=== PATIENT | male | born 1975 | race Two or more races ===

== ENCOUNTER 2017-08-01 05:01 | Emergency (ER) | payer MEDICAID ==
[~2017-08-01] VITALS: Ht 175.3 cm; Wt 86.2 kg
[2017-08-01 05:36] LABS: Urine RBC None Seen /hpf (0 - 3)
[2017-08-01 05:46] LABS: Urine Bilirubin Negative (Negative); Urine Blood Negative /uL (Negative); Urine Color Yellow (Yellow); Urine Glucose Normal (Normal); Urine Ketone Negative (Negative); Urine Mucus FEW (None Seen); Urine Nitrite Negative (Negative); Urine Urobilinogen Normal (Negative); Urine pH 5.5 (5.0-8.0)
[2017-08-01 05:47] LABS: Basophils # (auto) 0 uL; Basophils % (auto) 0.2 % (0.0-2.0); CONDITION Y; Eosinophils # (auto) 0.1 uL; Eosinophils % (auto) 1.5 % (0.0-7.0); Hematocrit 42.7 % (41.0-53.0); Hemoglobin 14.5 g/dL (13.5-17.5); Lymphocytes # (auto) 1.5 uL; Lymphocytes % (auto) 27.4 % (10.0-50.0); Mean Corpuscular Hemoglobin 31.1 pg (28.0-32.0); Mean Corpuscular Volume 91.7 fL (80.0-100.0); Mean Platelet Volume 9.1 fL (7.4-10.4); Monocytes # (auto) 0.4 uL; Monocytes % (auto) 6.7 % (0.0-12.0); Neutrophils # (auto) 3.6 uL; Neutrophils % (auto) 64.2 % (37.0-80.0); Platelet Count (auto) 162 10^3/uL (140-450); White Blood Cell 5.6 10^3/uL (4.4-10.8)
[2017-08-01 05:57] LABS: INR 0.96 (0.9-1.15); Partial Thromboplastin Time 28.1 sec (22.64-33.71); Prothrombin Time 10.5 sec (9.37-12.3)
[2017-08-01 06:19] LABS: B-Type Natriuretic Peptide 4.91 pg/mL (0-100); Temperature: 23.7 C (20.0-25.0)
[2017-08-01 06:20] LABS: Chloride 108 mmol/L (98-107); Potassium 4.1 mmol/L (3.5-5.1); Sodium 144 mmol/L (136-145)
[2017-08-01 06:24] LABS: Albumin 3.7 g/dL (3.4-5.0); Anion Gap 9 (5-15); Aspartate Aminotransferase 7 U/L (15-37); BUN/Creatinine Ratio 17.8; Blood Urea Nitrogen 21 mg/dL (7-18); Calcium 8.5 mg/dL (8.5-10.1); Carbon Dioxide 27 mmol/L (21-32); GFR African American 88 mL/min; GFR Non-African American 73 mL/min; Glucose 101 mg/dL (74-106); Magnesium 2.2 mg/dL (1.6-2.6)
[2017-08-01 06:29] LABS: Alkaline Phosphatase 65 U/L (45-117); Bilirubin, Total 0.3 mg/dL (0.2-1.0)
[2017-08-01] MEDS ORDERED: PANTOPRAZOLE 40 MG/10 ML VIAL IV ONE (06:45)
[2017-08-01 06:51] VITALS: BP 115/70
== END 2017-08-01 11:25 | disposition home or self-care (01) ==
LOC: ER 05:01
DX: K29.70 Gastritis, unspecified, without bleeding (principal); I10 Essential (primary) hypertension
CPT/HCPCS: 36415; 71010; 74176; 80053; 81001; 83735; 83880; 84443; 84484; 85025; 85610; 85730; 93005; 94761; 96374; 99285; C9113